=== PATIENT | female | born 1975 | race Caucasian/White ===

== ENCOUNTER 2022-12-05 08:59 | Emergency (ER) | payer OTHER ==
[~2022-12-05] VITALS: Ht 177.8 cm; Wt 115.7 kg
[2022-12-05] MEDS ORDERED: METFORMIN HCL1000 M2 (09:14)
[2022-12-05] MEDS ORDERED: AMOX-CLAV 875-1 EACH PO (13:10)
[2022-12-05] MEDS ORDERED: MEDROLPACK PO (13:10)
== END 2022-12-05 14:22 | disposition home or self-care (01) ==
LOC: ER 08:59
DX: J06.9 Acute upper respiratory infection, unspecified (principal); R09.81 Nasal congestion; Z20.822 Contact with and (suspected) exposure to COVID-19; J32.0 Chronic maxillary sinusitis

== ENCOUNTER 2025-02-12 11:12 | Outpatient (CLI) | payer OTHER ==
[~2025-02-12 11:12] MED LIST: AMOX-CLAV 875-1 EACH PO; EFFEXOR XR150 MG PO; MEDROLPACK PO; METFORMIN HCL1000 M2; MOUNJARO5 MG/0.5 M SQ; STEGLATRO15 MG PO
[2025-02-13] MEDS ORDERED: DOXYCYCLINE HY100 M2 PO (11:10)
[2025-02-13] MEDS ORDERED: NAPROXEN500 MG PO (11:11)
== END 2025-02-12 15:58 | disposition home or self-care (01) ==
LOC: LAB 11:12
PROVIDERS: ATTEND Obstetrics & Gynecology
DX: N91.1 Secondary amenorrhea (principal)

== ENCOUNTER 2025-02-13 05:34 | Day surgery (SDC) | payer OTHER ==
[2025-02-06 07:44] VITALS: BP 113/69
[2025-02-06 08:24] LABS: PH,URINE 5.5 (5.0-8.0); URINE APPEARANCE Clear; URINE BILIRRUBIN Negative (NEGATIVE); URINE BLOOD Negative; URINE COLOR Yellow; URINE KETONE Negative (NEGATIVE); URINE LEUKOCYTE Trace; URINE NITRATE Negative; URINE PROTEIN Negative (NEGATIVE); URINE UROBILINOGEN 0.2 E.U./dl
[2025-02-06 08:26] LABS: HEMATOCRIT 41.2 % (36.0-45.00); HEMOGLOBIN 13.2 g/dL (12.0-15.00); MEAN CELL VOLUME 82.7 fL (80.00-100.00); MEAN CORPUSCULAR HEMOGLOBIN 26.5 pg (27.00-32.0); MEAN CORPUSCULAR HGB CONC 32.1 g/dl (32.0-36.0); PLATELET COUNT 305 K/uL (150-450); RED BLOOD COUNT 4.98 M/uL (4.00-6.00); RED CELL DISTRIBUTION WIDTH 15.1 % (11.5-14.5)
[2025-02-06 08:28] LABS: URINE BACTERIA 210.4 uL (0.0-1933); URINE EPITHELIAL CELLS 4.9 uL (0.0-38.8); URINE RBC 15.4 uL (0.0-20.8); URINE WBC 217.6 uL (0.0-23.2)
[2025-02-06 08:43] LABS: URINE CAST 0.29 uL (0.0-1.40); URINE GLUCOSE >=1000 MG/DL (NEGATIVE)
[2025-02-06 08:48] LABS: INR < 0.93; PARTIAL THROMBOPLASTIN TIME 26.7 SECONDS (22.0-34.0); PROTHROMBIN TIME 10.2 SECONDS (9.0-11.5)
[2025-02-06 09:03] LABS: ALBUMIN 3.9 gm/dL (3.4-5.0); BILIRUBIN TOTAL 0.32 mg/dL (0.3-1.2); CREATININE SERUM 0.64 mg/dL (0.55-1.02); GFR 97.83; GLOBULINA 3.3 G/DL (2.4-3.5); POTASSIUM 3.97 mEq/L (3.5-5.1); TOTAL PROTEIN 7.2 gm/dL (6.4-8.2)
[~2025-02-13] VITALS: Ht 177.8 cm; Wt 117.9 kg
[2025-02-13] MEDS ORDERED: CEFAZOLIN SODIUM 1,000 MG VIAL ONE (07:10)
[2025-02-13] MEDS ORDERED: POVIDONE-IODINE 118 ML BOTT TOP ONE (09:41)
[2025-02-13] MEDS ORDERED: DOXYCYCLINE HY100 M2 PO (11:10)
[2025-02-13] MEDS ORDERED: NAPROXEN500 MG PO (11:11)
[2025-02-13] MEDS ORDERED: SUGAMMADEX SODIUM 200 MG/2 ML VIAL IV ONE (11:20)
[2025-02-13] MEDS ORDERED: MORPHINE SULFATE 4 MG/ML VIAL IV ONE (12:30)
== END 2025-02-13 13:35 | disposition home or self-care (01) ==
LOC: CIR.AMB 05:34
PROVIDERS: ATTEND Obstetrics & Gynecology
DX: C54.1 Malignant neoplasm of endometrium (principal); D25.0 Submucous leiomyoma of uterus; N84.0 Polyp of corpus uteri; N95.0 Postmenopausal bleeding; J45.909 Unspecified asthma, uncomplicated

== ENCOUNTER 2025-04-25 08:45 | Inpatient (IN) | payer OTHER ==
[~2025-04-25] VITALS: Ht 177.8 cm; Wt 118.4 kg
[~2025-04-25 08:45] MED LIST changes: +DOXYCYCLINE HY100 M2 PO; +NAPROXEN500 MG PO
[2025-04-25 10:33] LABS: COVID-19 AG NEGATIVE (NEGATIVE)
[2025-04-25 10:57] VITALS: BP 109/75
[2025-04-25 11:24] LABS: RH POSITIVE
[2025-05-01] MEDS ORDERED: CEFAZOLIN SODIUM 1,000 MG VIAL ONE ×2 (07:07→16:23)
[2025-05-01] MEDS ORDERED: METRONIDAZOLE/SODIUM CHLORIDE 500 MG/100 ML PIGGYBACK IV ONE (07:07)
[2025-05-01] MEDS ORDERED: POVIDONE-IODINE 118 ML BOTT TOP ONE (07:17)
[2025-05-01] MEDS ORDERED: SUGAMMADEX SODIUM 200 MG/2 ML VIAL IV ONE (08:38)
[2025-05-01] MEDS ORDERED: VISTASEAL DUAL APPICATOR 1 EACH APPL TOP ONE (08:48)
[2025-05-01] MEDS ORDERED: THROMBIN,HU/FIBRINOGEN/CALCIUM 10 ML SYRINGE TOP ONE (08:48)
[2025-05-01] MEDS ORDERED: CHLORHEXIDINE GLUCONATE 120 ML BOTTLE TOP ONE (09:47)
[2025-05-01] MEDS ORDERED: OxyCODONE HCL 5 MG TABLET (ROXICODONE) PO PRN (10:00)
[2025-05-01] MEDS ORDERED: RINGERS SOLUTION,LACTATED 1,000 ML IV SCH (10:00)
[2025-05-01] MEDS ORDERED: MORPHINE SULFATE 4 MG/ML CARTRIDGE IV PRN (10:00)
[2025-05-01] MEDS ORDERED: MORPHINE SULFATE 4 MG/ML VIAL IV ONE (10:10)
[2025-05-01] MEDS ORDERED: KETOROLAC TROMETHAMINE 30 MG VIAL IV ONE (10:55)
[2025-05-01] MEDS ORDERED: KETOROLAC TROMETHAMINE 30 MG VIAL ONE (11:07)
[2025-05-01 11:31] LABS: BASO % 0.3 % (0.1-1.2); EOS # 0.06 (0.04-0.54); EOS % 0.6 % (0.7-7.0); HEMATOCRIT 39.4 % (34.1-44.9); HEMOGLOBIN 12.3 g/dL (11.2-15.7); LYMPH % 16.3 % (19.3-53.1); MEAN CORPUSCULAR HEMOGLOBIN 25.7 pg (25.6-32.2); MONO # 0.39 (0.24-0.82); MONO % 3.8 % (4.7-12.5); NEUT # 8.13 (1.56-6.13); NEUT % 78.1 % (34.0-71.1); PLATELET COUNT 297 K/uL (163-369); RED BLOOD COUNT 4.78 M/uL (3.93-5.22); RED CELL DISTRIBUTION WIDTH 15.5 % (11.6-14.4)
[2025-05-01] MEDS ORDERED: ACETAMINOPHEN 500 MG GEL..CAP PO SCH (12:00)
[2025-05-01] MEDS ORDERED: KETOROLAC TROMETHAMINE 30 MG VIAL IM SCH (12:00)
[2025-05-01 12:18] LABS: ALBUMIN 3.8 gm/dL (3.4-5.0); CALCIUM 8.8 mg/dL (8.5-10.1); CREATININE SERUM 0.62 mg/dL (0.55-1.02); GFR 101.08; PHOSPHOROUS 3.5 mg/dL (2.5-4.9); POTASSIUM 4.61 mEq/L (3.5-5.1)
[2025-05-01] MEDS ORDERED: SIMETHICONE 125 MG CAPSULE PO SCH (13:00)
[2025-05-01] MEDS ORDERED: INSULIN LISPRO 1,000 UNIT/10 ML UNITS SUBCUTANEO PRN (15:30)
[2025-05-01] MEDS ORDERED: DEXTROSE 50 % IN WATER 0.5 G/ML VIAL IV PRN (15:30)
[2025-05-01] MEDS ORDERED: SIMETHICONE 125 MG CAPSULE PO ONE (16:23)
[2025-05-01] MEDS ORDERED: GABAPENTIN 300 MG CAPSULE PO ONE (16:23)
[2025-05-01] MEDS ORDERED: CEFAZOLIN SODIUM 1,000 MG VIAL IV SCH (17:00)
[2025-05-01] MEDS ORDERED: GABAPENTIN 300 MG CAPSULE PO SCH (17:00)
[2025-05-01 17:35] VITALS: BP 90/60
[2025-05-01 20:00] VITALS: BP 135/78
[2025-05-01] MEDS ORDERED: DOCUSATE SODIUM 100MG CAP PO SCH (21:00)
[2025-05-01] MEDS ORDERED: FAMOTIDINE/PF 20 MG/2 ML VIAL IV PUSH SCH (21:00)
[2025-05-02 01:09] VITALS: BP 94/62; O2SAT 100
[2025-05-02 05:58] LABS: ALBUMIN 3.3 gm/dL (3.4-5.0); CALCIUM 8.7 mg/dL (8.5-10.1); CREATININE SERUM 0.6 mg/dL (0.55-1.02); GFR 104.98; PHOSPHOROUS 3.1 mg/dL (2.5-4.9); POTASSIUM 4.32 mEq/L (3.5-5.1)
[2025-05-02 06:17] LABS: BASO % 0.4 % (0.1-1.2); EOS # 0.09 (0.04-0.54); EOS % 1.2 % (0.7-7.0); HEMATOCRIT 37.6 % (34.1-44.9); HEMOGLOBIN 11.5 g/dL (11.2-15.7); LYMPH % 19.3 % (19.3-53.1); MEAN CORPUSCULAR HEMOGLOBIN 25.1 pg (25.6-32.2); MONO # 0.38 (0.24-0.82); MONO % 4.9 % (4.7-12.5); NEUT # 5.76 (1.56-6.13); NEUT % 73.9 % (34.0-71.1); PLATELET COUNT 332 K/uL (163-369); RED BLOOD COUNT 4.59 M/uL (3.93-5.22); RED CELL DISTRIBUTION WIDTH 15.9 % (11.6-14.4)
[2025-05-02] MEDS ORDERED: TRAMADOL HCL 50 MG TABLET PO PRN (07:45)
[2025-05-02] MEDS ORDERED: ENOXAPARIN SODIUM 40 MG/0.4 ML SYRINGE SUBCUTANEO SCH (09:00)
[2025-05-02 10:01] VITALS: BP 111/70
== END 2025-05-02 13:16 | disposition home or self-care (01) | DRG 741 ==
LOC: O/R 05-01 05:13 → SURH 05-01 07:00 → OB/GYN 05-01 15:37
PROVIDERS: ADMIT Obstetrics & Gynecology Gynecologic Oncology; ATTEND Obstetrics & Gynecology Gynecologic Oncology
PROC: 07BC4ZZ Excision of Pelvis Lymphatic, Percutaneous Endoscopic Approach (ICD-10-PCS; 2025-05-01)
PROC: 0UT74ZZ Resection of Bilateral Fallopian Tubes, Percutaneous Endoscopic Approach (ICD-10-PCS; 2025-05-01)
PROC: 0UT24ZZ Resection of Bilateral Ovaries, Percutaneous Endoscopic Approach (ICD-10-PCS; 2025-05-01)
PROC: 8E0W4CZ Robotic Assisted Procedure of Trunk Region, Percutaneous Endoscopic Approach (ICD-10-PCS; 2025-05-01)
PROC: 0UT94ZZ Resection of Uterus, Percutaneous Endoscopic Approach (ICD-10-PCS; principal; 2025-05-01 07:00)
DX: C54.1 Malignant neoplasm of endometrium (principal)
CPT/HCPCS: 58548; S2900